=== PATIENT | male | born 1960 | race Caucasian/White ===

== ENCOUNTER 2020-05-09 01:41 | Outpatient (CLI) | payer BC, SELFPAY ==
[2020-05-09 18:17] LABS: SARS-CoV-2 RNA PCR Negative
== END 2020-05-09 01:42 | disposition home or self-care (01) ==
LOC: ANHCOVIDDT 01:42
PROVIDERS: PCP Family Medicine; Visit Provider Internal Medicine Gastroenterology
DX: Z01.812 Encounter for preprocedural laboratory examination (principal); Z20.828 Contact with and (suspected) exposure to other viral communicable diseases
CPT/HCPCS: 87635; C9803; U0003

== ENCOUNTER 2020-05-11 00:33 | Day surgery (SDC) | payer BC, SELFPAY ==
[2020-05-04 14:57] VITALS: BMI 31.6
[2020-05-11 09:07] VITALS: BMI 31.2
[2020-05-11 09:08] VITALS: BP 133/74; PULSE 56; RESP 18; TEMP 36.3; O2SAT 100
[2020-05-11] MEDS: LACTATED RINGERS 1,000 ML 150 ML IV CONT (09:25)
--- NOTE | 2020-05-11 09:31 | WPDANESEPPF ---
Anes - Initial Pre Proc Eval Procedure: Operation Date: 05/11/20 10:00 Proposed Procedures p Screening Colonoscopy - Porfirio Ramos MD Date/Time: 05/11/20 09:31 Surgeon: Porfirio Ramos MD Pre Op Diagnosis: Neoplasm Screening Patient Data Age: 60 Gender: M Height: 6 ft 2 in Weight: 110.3 kg Last Vital Signs Temp 36.3 C L 05/11/20 09:08 Pulse 56 L 05/11/20 09:08 Resp 18 05/11/20 09:08 BP 133/74 05/11/20 09:08 Pulse Ox 100 05/11/20 09:08 Allergies Allergy/AdvReac Type Severity Reaction Status Date / Time No Known Allergies Allergy Unverified 05/11/20 09:06 Home Medications Medication Instructions Recorded Confirmed Type sildenafil 100 mg tablet 100 mg PO DAILY PRN #10 tablet 03/22/20 05/04/20 Rx Patient hx anesthesia problems: none Family hx anesthesia problems: none PMFSH Past Medical History Medical History (Updated 05/11/20 @ 09:33 by Cameron Whitney MD) Male erectile dysfunction, unspecified Obesity Surgical History Surgical History H/O removal of cyst left index finger - 06/2019 History of tonsillectomy 1963 Family History Family History Father Diabetes mellitus Family history of cardiovascular disease Mother Hypertension Social History Social History Smoking packs per day: 1.5 Smoking cigarettes per day: 30.0 Years smoked: 28 Smoking pack-years: 42.00 Smoking status: Former smoker Tobacco type: cigarettes Second hand tobacco smoke exposure: No Smoking end date: 07/13/10 Alcohol intake: current Drinks per week: 14 Alcohol use details: BOURBON Substance use: never Substance use type: does not use Living arrangements: with family Spiritual care concerns: No Anes - Eval Final PreProcedure Day of Procedure 05/11/20 09:31 Patient weight: obese Heart: regular rate and rhythm Lungs: clear to auscultation Airway: Mallampati scale class II and special considerations poor dentition Neurological: alert and oriented Last oral intake: >/= 8 hours ASA classification: III Emergent: no Anesthetic plan: proceed Anesthesia type and monitoring: general GIVS and standard monitoring Informed Consent: The patient's anesthetic plan and its attendant risks and benefits were discussed with the patient/family/POA. Questions were solicited and answers provided to the satisfaction of the patient/family/POA.
--- NOTE | 2020-05-11 09:36 | P.HP_ITS ---
History of Present Illness History of Present Illness Consent: Risks, benefits, and alternatives have been discussed and questions answered. Patient agrees to proceed with procedure. Chief complaint: Neoplasm Screening Narrative: Justino Sommer is a 60 year old male Here for colon cancer screening. He had polyps removed about 5 years ago [facility] Past Medical History Medical History Male erectile dysfunction, unspecified Obesity Surgical History Surgical History H/O removal of cyst left index finger - 06/2019 History of tonsillectomy 1963 Family History Family History Father Diabetes mellitus Family history of cardiovascular disease Mother Hypertension Social History Social History Smoking packs per day: 1.5 Smoking cigarettes per day: 30.0 Years smoked: 28 Smoking pack-years: 42.00 Smoking status: Former smoker Tobacco type: cigarettes Second hand tobacco smoke exposure: No Smoking end date: 07/13/10 Alcohol intake: current Drinks per week: 14 Alcohol use details: BOURBON Substance use: never Substance use type: does not use Living arrangements: with family Spiritual care concerns: No Meds Home Medications and Allergies Home Medications Medication Instructions Recorded Confirmed Type sildenafil 100 mg tablet 100 mg PO DAILY PRN #10 tablet 03/22/20 05/04/20 Rx Allergies Allergy/AdvReac Type Severity Reaction Status Date / Time No Known Allergies Allergy Unverified 05/11/20 09:06 Vital Signs Vital Signs - 24 hr 05/11/20 09:08 Temperature 36.3 C L Pulse Rate 56 L Respiratory Rate 18 Blood Pressure 133/74 Pulse Oximetry 100 Exam Resp: Auscultation: clear to auscultation bilaterally Cardio: Rate: regular rate Rhythm: regular rhythm GI: GI Palp: Yes Soft to palpation and No Tenderness to palpation present (GI) Assessment and Plan Assessment and plan (1) Colon cancer screening: Code(s): Z12.11 - Encounter for screening for malignant neoplasm of colon Status: Acute
[2020-05-11 10:10] VITALS: BP 115/65; PULSE 59; RESP 17; O2SAT 97
[2020-05-11 10:20] VITALS: BP 116/64; PULSE 53; RESP 13; O2SAT 96
[2020-05-11 10:30] VITALS: BP 125/70; PULSE 53; RESP 16; O2SAT 97
== END 2020-05-11 10:48 | disposition home or self-care (01) ==
PROVIDERS: PCP Family Medicine; Visit Provider Internal Medicine Gastroenterology
PROC: 0DJD8ZZ Inspection of Lower Intestinal Tract, Via Natural or Artificial Opening Endoscopic (ICD-10-PCS; CPT 45378; principal; 2020-05-11 10:00)
DX: Z12.11 Encounter for screening for malignant neoplasm of colon (principal); D12.3 Benign neoplasm of transverse colon; K57.30 Diverticulosis of large intestine without perforation or abscess without bleeding; E66.9 Obesity, unspecified; Z68.31 Body mass index [BMI] 31.0-31.9, adult; Z87.891 Personal history of nicotine dependence
CPT/HCPCS: 45380; 88305; J2001; J2704; J7120

== ENCOUNTER 2023-04-13 08:53 | Emergency (ER) | payer MEDICARE, SELFPAY ==
[2023-04-13 09:03] VITALS: BP 162/81; PULSE 69; RESP 18; TEMP 37.1; O2SAT 99
--- NOTE | 2023-04-13 09:25 | ED.URI ---
HPI - URI/Sore Throat General Chief Complaint: Upper Respiratory Infection Stated Complaint: Strep symptoms Time Seen by Provider: 04/13/23 09:26 Source: patient, RN notes reviewed and old records reviewed Mode of arrival: ambulatory Limitations: no limitations History of Present Illness HPI Narrative: 63-year-old male presents to [facility] with complaints of right sided swelling under his right jaw line with some tenderness also to his right tonsillar lymph nodes and sore throat since Thursday. Patient reports that he has some ear pressure also to his right ear with no drainage or any swelling to mastoid region or any tragal tenderness noted on exam. Patient reports that girlfriend had COVID about 2-3 weeks ago and he tested negative at that time. Patient reports that he has taken some Ibuprofen for his complaints. MD elicited complaint: sore throat, rhinorrhea and nasal congestion Onset (ago): day(s) (3) Pain scale (0-10): 5 Able to tolerate fluids by mouth: Yes Treatments prior to arrival: ibuprofen Related Data Home Medications Medication Instructions Recorded Confirmed aspirin 81 mg tablet,delayed 81 mg PO DAILY 05/08/22 04/13/23 release (Adult Aspirin Regimen) Allergies Allergy/AdvReac Type Severity Reaction Status Date / Time No Known Allergies Allergy Verified 04/13/23 09:10 Review of Systems Review of Systems: CONSTITUTIONAL: Denies malaise, chills, sweats, or fever. EYES: Denies visual changes, redness, or discharge. ENT: Reports rhinorrhea, congestion,no sinus pain, right otalgia and sore throat with some jawline swelling on right and tonsillar lymph node swelling and soreness CARDIOVASCULAR: Denies chest pain, palpitations, or edema. RESPIRATORY: Reports no cough.? Denies dyspnea. GASTROINTESTINAL: Denies abdominal pain, nausea, vomiting, diarrhea SKIN: Denies rash or itching. MUSCULOSKELETAL: Denies myalgia. NEUROLOGIC: Denies headache. 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 Elevated PSA Male erectile dysfunction, unspecified Mixed hyperlipidemia Obesity Vitamin D deficiency Surgical History Surgical History H/O removal of cyst left index finger - 06/2019 History of tonsillectomy 1963 Family History Family History Father Diabetes mellitus Family history of cardiovascular disease Mother Hypertension Social History Social History Smoking packs per day: 1.5 Smoking cigarettes per day: 30.0 Years smoked: 28 Smoking pack-years: 42.00 Smoking status: Former smoker Tobacco type: cigarettes Second hand tobacco smoke exposure: No Smoking end date: 07/13/10 Alcohol intake: current Drinks per week: 14 Alcohol use details: BOURB[place] Substance use: never Substance use type: does not use Living arrangements: with family Occupation/Education: occupation 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 There is no relevant family history pertinent to the presenting complaint Exam Narrative: GENERAL: Well-appearing, well-nourished, and in no acute distress. HEAD: Normocephalic EYES: PERRLA, conjunctivae clear ENT: Nares clear, turbinates edematous and erythematous, clear discharge. Mucous membranes moist. TM pearly karimi with dull light reflex bilateral
== END 2023-04-13 10:10 | disposition home or self-care (01) ==
PROVIDERS: Emergency Provider Registered Nurse; PCP Family Medicine
DX: R59.1 Generalized enlarged lymph nodes (principal); J02.9 Acute pharyngitis, unspecified; E78.2 Mixed hyperlipidemia; Z79.899 Other long term (current) drug therapy; Z87.891 Personal history of nicotine dependence; Z20.822 Contact with and (suspected) exposure to COVID-19
CPT/HCPCS: 87081; 87426; 87880; 99213; C9803; G0463

== ENCOUNTER 2024-05-23 10:38 | Outpatient (CLI) | payer MEDICARE, SELFPAY ==
--- NOTE | ~2024-05-23 | PE_ITS ---
EXAMINATION: PET_PETPSMAST_PT DATE: 05/23/2024 13:42 INDICATION: Prostate cancer TECHNIQUE: 5.104 mCi of Illucix Ga-68([id number]) was administered i.v. Low dose computed nancy graphy (CT) images were acquired from the base of the brain to the base of the brain to the proximal thighs for attenuation correction and anatomic localization. Positron emission tomography (PET) image s were acquired in the same distribution beginning 86 minutes after injection. Images including fused PET/CT images were reconstructed in axial, coronal, and sagittal planes. Automated exposure control technique was employed. The dose-length product was 1429.70mGy-cm. COMPARISON: None FINDINGS: Head/neck: Typical pattern of symmetric physiologic increased activity in the lacrimal, parotid and submandibula r glands as well as along the mucosa of the nasal and oral cavities, pharynx and hypopharynx. No path ologically enlarged cervical lymphadenopathy or suspicious foci of increased uptake in the visualized head or neck. Chest: Mild atelectasis in the bilateral lower lobes. No suspicious pulmonary nodules, pneumonia, pulmonary edema or pleural effusion. Mild cardiomegaly. No pericardial effusion. Small amount scattered atheros clerotic coronary artery calcification. Thoracic aorta is normal in caliber. No pathologically enlarg ed or PSMA avid thoracic lymphadenopathy. Abdomen/pelvis/proximal thighs: Physiologic renal accumulation and excretion of activity in the kidneys, bladder and along portions o f ureters. Status post prostatectomy with no evident adjacent PSA may avid lesions to suggest residua l disease. Photopenic defects associated with a 4.0 cm exophytic cyst at the upper pole of the right kidney and a couple approximately 1 cm eccentric cyst at the lower poles of both kidneys. Normal degr ee and slightly heterogenous pattern of increased uptake throughout the liver and spleen without radi ologic correlate or dominant PSMA avid lesion. The gallbladder, pancreas and bilateral adrenal glands are normal. Moderate uptake scattered throughout the bowels with typical duodenal and proximal jejun al predominance and without radiologic correlate, also likely physiologic. There are few scattered co lonic diverticula without adjacent from trace stranding to suggest diverticular colitis. Normal appen luisa . No other abnormal foci of increased uptake or pathologically enlarged lymphadenopathy in the abd omen, pelvis or proximal thighs. Musculoskeletal: Mild to moderate scattered degenerative skeletal changes. No suspicious lytic, blastic or PSMA avid b one lesions. Tiny focus of mild likely extravasated activity at the site of injection at the right ramirez nd. IMPRESSION: 1. No PSMA avid lesions to suggest residual or metastatic disease. Reviewed, dictated and finalized at location B. TRONIC ASSEMBLER GROUP LEADER
== END 2024-05-23 10:39 | disposition home or self-care (01) ==
PROVIDERS: PCP Nurse Practitioner Family; Visit Provider Radiology Radiation Oncology
DX: Z51.0 Encounter for antineoplastic radiation therapy (principal); C61 Malignant neoplasm of prostate; Z19.1 Hormone sensitive malignancy status
CPT/HCPCS: 78815; A9596

== ENCOUNTER 2024-06-08 13:58 | Outpatient (CLI) | payer MEDICARE, SELFPAY ==
--- NOTE | ~2024-06-08 | MR_ITS ---
EXAMINATION: MR pelvis wo/w con DATE: 06/08/2024 15:20 INDICATION: Prostate cancer TECHNIQUE: Magnetic resonance imaging (MRI) of the pelvis was performed without and with 20 mL Multih ance intravenous contrast. Fullfield sequences of the pelvis included axial and coronal T2-weighted S S FSE, axial, sagittal and coronal 2D FIESTA, axial 2D FIESTA FS, axial SSFSE-IR AIDE, axial dual-echo T1-weighted FSPGR, axial and coronal T1 weighted LAVA, 3D axial T2 Cube, axial diffusion-weighted SE with apparent diffusion coefficient (ADC) maps. Postcontrast sequences included a time course axial T1-weighted LAVA and sagittal and coronal T1-weighted LAVA. COMPARISON: PET study dated 05/23/2024 FINDINGS: Postoperative change of prior prostatectomy. No abnormal nodular soft tissue at the prostatectomy bed to suggest residual/locally recurrent disease. Bladder is normal. Visualized portion of the bowels a re unremarkable. No pathologically enlarged pelvic or inguinal lymphadenopathy. Visualized bone marro w signal is normal throughout with no pathologic marrow replacing process. IMPRESSION: 1. Status post prostatectomy. No evident residual, locally recurrent or metastatic disease. Reviewed, dictated and finalized at location A. TANK CAR UNLOADER IMPRESSION: 1. Status post prostatectomy. No evident residual, locally recurrent or metasta tic disease.
== END 2024-06-08 13:59 | disposition home or self-care (01) ==
PROVIDERS: PCP Family Medicine; Visit Provider Radiology Radiation Oncology
DX: C61 Malignant neoplasm of prostate (principal); Z90.79 Acquired absence of other genital organ(s)
CPT/HCPCS: 72197; A9577

== ENCOUNTER 2025-05-22 08:27 | Outpatient (CLI) | payer MEDICARE, SELFPAY ==
--- NOTE | ~2025-05-22 | NM_ITS ---
EXAMINATION: NM stress w perf spect multi DATE: 05/22/2025 12:37 INDICATION: Chest pain. TECHNIQUE: Rest images were obtained following intravenous administration of 11.372 mCi Tc99m tetrofosmin ([email or web address]). The patient performed an exercise activity. At peak exercise, 34.8 mCi Tc99m tetrofosmin (Myoview) was administered intravenously, and supine and prone stress images were obtained. Data was reconstructed into short axis and horizontal and vertical long axis SPECT images. Gated SPECT images were also obtained. COMPARISON: None. FINDINGS: There is no definite reversible or fixed perfusion abnormality to suggest ischemia or infarction. There is no segmental wall motion abnormality. Left ventricular ejection fraction measures 62%. IMPRESSION: 1. No definite ischemia or infarct. 2. Normal left ventricular ejection fraction measuring 62%. Reviewed, dictated and finalized at location E. RMATION COORDINATOR
--- OUTSIDE RECORDS SUMMARY | 2025-05-22 08:38 | XMS_ITS | Clinical Summary ---
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 Phone Dung Jamison MD Primary Care Provider Lucio Zeng MD Unavailable [phone] Allergies No known active allergies Medications lisinopriL (PRINIVIL,ZESTR IL) 10 mg tablet Take 1 tablet (10 mg total) by mouth every morning Active aspirin 81 mg enteric coated tablet Take 1 tablet (81 mg total) by mouth every morning Active docusate sodium (COLACE) 100 mg capsuleIndicati ons:constipatio n Take 1 capsule (100 mg total) by mouth 2 (two) times a day as needed for constipation 30 capsule 4 Active HYDROcodone-anuradha taminophen (NORCO) 5-325 mg per tabletIndicatio ns:Pain Take 1 tablet by mouth every 6 (six) hours as needed for pain 15 tablet 4 Active sulfamethoxazol e-trimethoprim (BACTRIM DS) 800-160 mg per tablet Take 1 tablet (160 mg of trimethoprim total) by mouth 2 (two) times a day 14 tablet 4 Active acetaminophen 500 mg capsuleIndicati ons:Pain Take 2 capsules (1,000 mg total) by mouth every 6 (six) hours 4 Active Active Problems Problem Noted Date Diagnosed Date Prostate cancer 01/26/2024 Surgical History Surgery Date Site/Laterality Comments TONSILLECTOMY Medical History Medical History Date Comments Obesity BMI 32 HTN (hypertension) Prostate cancer (HCC) Social History Tobacco Use Types Packs/Day Years Used Date Smoking Tobacco: Former Cigarettes Tobacco Cessation:Counseling Given: Not Answered AUDIT-C Answer Date Recorded Q1: How often do you have a drink containing alc ohol? 2-3 times a week 02/03/2024 Q2: How many drinks containi ng alcohol do you have on a typical day when you are drinking? 3 or 4 02/03/2024 Q3: How often do you have si x or more drinks on one occasion? Less than monthly 02/03/2024 Personal Safety Answer Date Recorded Have you ever been in or are you currently in a harmful physical or emotional relationship or is someone making you feel afraid or unsafe? Denies 02/03/2024 Sex and Gender Information Value Date Recorded Sex Assigned at Not on file Legal Sex Male 9:46 AM CDT Gender Identity Not on file Sexual Orientation Not on file Last Filed Vital Signs Vital Sign Reading Time Taken Comments Blood Pressure 131/69 02/04/2024 12:06 PM CDT Pulse 59 02/04/2024 12:06 PM CDT Temperature 36.4 C (97.5 F) 02/04/2024 12:06 PM CDT Respiratory Rate 16 02/04/2024 12:06 PM CDT Oxygen Saturation 98% 02/04/2024 12:06 PM CDT Inhaled Oxygen Concentration - - Weight 115.1 kg (253 lb 12 oz) 02/03/2024 6:05 A M CDT Height 190.5 cm (6' 3) 02/03/2024 6:05 AM CDT Body Mass Index 31.72 02/03/2024 6:05 AM CDT Plan of Treatment Health Maintenance Due Date Last Done Comments Colon Cancer Screening-Colonoscopy 1960 Depression Screening 1960 Hepatitis C Screening 1960 Prostate Cancer Screening-PSA 1958 Hepatitis B Screening 1976 Pneumococcal vaccine 65+ (1 of 1 - PCV) 2008 Zoster Vaccine (1 of 2) 2008 Abdominal Aortic Aneurysm (AAA) Screen 2023 Well Visit 65+ 2023 DTaP/Tdap/Td Vaccine (2 - Td or Tdap) 09/19/202404/2015 Fall Risk Assessment 02/03/2025 02/04/2024 Covid-19 Vaccine ( season) 03/13/202512/2020 Influenza Vaccine (#1) 2025 08/30/2024 Insurance MEDICARE ADVANTAGE MEDICARE ADVANTAGE Advance Directives For more information, please contact: [phone] Documents on File Type Date Recorded 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 [place] [address] PCP - General Family Practice 01/04/24 [place] [id number] [place] [address] Consulting Physician General Surgery 02/04/24
--- NOTE | 2025-05-22 09:00 | EST_ITS ---
Patient Info Name: Justino Sommer Age: 65 years : 1960 Gender: Male Ht: 75 in Wt: 265 lbs BSA: 2.55 m2 HR: 60 bpm BP: 186 / 93 mmHg Exam Date: 05/22/2025 9:00 AM Patient Status: O Admit Date: 05/22/2025 Exam Type: CA stress test treadmill w NM A nuclear stress test was performed. Staff Referring Physician: Coleman Jamison Attending Provider: Coleman Jamison Exercise Technologist: Donnell Gooden DO Exercise Physician: Donnell Gooden DO Summary 1. 1. Negative Andi exercise stress test for ischemic ST changes by ECG criteria. 2. 2. Reduced functional capacity, achieving 5.6 METs of workload. 3. 3. Baseline hypertension with hypertensive response to exercise. 4. 4. Appropriate HR response to exercise. 5. 5. Appropriate HR recovery at 1 minute post exercise. 6. 6. Nuclear scan to follow and will be reported separately. Please correlate with it. 7. 7. Patient informed of the above results. Protocol: Andi Stress ECG Details Stage: REST Duration (min): 2 min : 17 sec Speed (mph): 0.0 Grade (%): 0 HR (bpm): 58 SBP (mmHg): 186 DBP (mmHg): 93 METS: --- Stage: REST Duration (min): 7 min : 5 sec Speed (mph): 0.0 Grade (%): 0 HR (bpm): 69 SBP (mmHg): 186 DBP (mmHg): 93 METS: --- Stage: STAGE 1 Duration (min): 1 min : 0 sec Speed (mph): 1.7 Grade (%): 10 HR (bpm): 96 SBP (mmHg): 186 DBP (mmHg): 93 METS: --- Stage: STAGE 1 Duration (min): 2 min : 0 sec Speed (mph): 1.7 Grade (%): 10 HR (bpm): 114 SBP (mmHg): 186 DBP (mmHg): 93 METS: --- Stage: STAGE 1 Duration (min): 3 min : 0 sec Speed (mph): 1.7 Grade (%): 10 HR (bpm): 131 SBP (mmHg): 200 DBP (mmHg): 98 METS: --- Stage: STAGE 2 Duration (min): 0 min : 30 sec Speed (mph): 2.5 Grade (%): 12 HR (bpm): 141 SBP (mmHg): 200 DBP (mmHg): 98 METS: --- Stage: RECOVERY Duration (min): 0 min : 29 sec Speed (mph): 0.0 Grade (%): 0 HR (bpm): 140 SBP (mmHg): 200 DBP (mmHg): 98 METS: --- Stage: RECOVERY Duration (min): 1 min : 29 sec Speed (mph): 0.0 Grade (%): 0 HR (bpm): 111 SBP (mmHg): 200 DBP (mmHg): 98 METS: --- Stage: RECOVERY Duration (min): 2 min : 29 sec Speed (mph): 0.0 Grade (%): 0 HR (bpm): 93 SBP (mmHg): 200 DBP (mmHg): 98 METS: --- Stage: RECOVERY Duration (min): 3 min : 29 sec Speed (mph): 0.0 Grade (%): 0 HR (bpm): 78 SBP (mmHg): 200 DBP (mmHg): 98 METS: --- Stage: RECOVERY Duration (min): 4 min : 29 sec Speed (mph): 0.0 Grade (%): 0 HR (bpm): 71 SBP (mmHg): 200 DBP (mmHg): 98 METS: --- Stage: RECOVERY Duration (min): 5 min : 29 sec Speed (mph): 0.0 Grade (%): 0 HR (bpm): 70 SBP (mmHg): 217 DBP (mmHg): 76 METS: --- Stage: RECOVERY Duration (min): 6 min : 29 sec Speed (mph): 0.0 Grade (%): 0 HR (bpm): 77 SBP (mmHg): 184 DBP (mmHg): 77 METS: --- Stage: RECOVERY Duration (min): 6 min : 55 sec Speed (mph): 0.0 Grade (%): 0 HR (bpm): 74 SBP (mmHg): 184 DBP (mmHg): 77 METS: --- Rest HR: 69 bpm Peak HR: 144 bpm Rest Sys BP: 186 mmHg Peak Sys BP: 217 mmHg Max Pred HR: 153 bpm % Max Pred HR: 94 % Target HR: 130 bpm Max RPP: 31,248 bpm*mmHg Moeller Score: -2 BP Response: Patient exhibited a hypertensive response with stress Termination Reason: Reached target heart rate or workload Cardiac Symptoms: Shortness of breath, Right thigh cramp Max ST Seg Deviation: -1.00 mm Total Time: 3 min : 30 sec Rest Robles BP: 93 mmHg Peak Robles BP: 76 mmHg Angina Score: None Total METS: 5.6 Resting ECG Sinus rhythm. Stress ECG No ST changes. Arrhythmias None. Report Signatures
== END 2025-05-22 08:28 | disposition home or self-care (01) ==
PROVIDERS: PCP Family Medicine; Visit Provider Family Medicine
DX: R94.39 Abnormal result of other cardiovascular function study (principal); R07.9 Chest pain, unspecified
CPT/HCPCS: 78452; 93017; A9502